=== PATIENT | male | born 1990 | race Caucasian/White ===

== ENCOUNTER 2022-11-05 12:20 | Emergency (ER) | payer MEDICAID ==
[~2022-11-05] VITALS: Ht 172.7 cm; Wt 77.1 kg
[2022-11-05] MEDS ORDERED: SUBLOCADE100 MG/0.5 SUB-Q (12:51)
[2022-11-05] MEDS ORDERED: LAMICTAL25 MG PO (12:52)
[2022-11-05] MEDS ORDERED: LITHIUM CARBON600 MG PO (12:52)
[2022-11-05] MEDS ORDERED: VENTOLIN HFA18 GM INH (12:53)
--- NOTE | 2022-11-05 16:17 | EKG ---
[facility] [address] [facility] [place] [address] Signed Normal sinus rhythm Normal ECG No previous ECGs available Confirmed by RAZ SAM MD ([id number]) on 11/05/2022 4:16:56 PM Electronically Signed By: RAZ SAM MD 11/05/22 1617 PATIENT NAME: ALDA AMANDA Electrocardiogram DATE OF : 88 PHYSICIAN: RAZ SAM MD REPORT #: [id number] REPORT IS CONFIDENTIAL AND NOT TO BE RELEASED WITHOUT AUTHORIZATION
== END 2022-11-05 16:27 | disposition home or self-care (01) ==
LOC: ED 12:20
DX: R10.11 Right upper quadrant pain (principal); Z79.899 Other long term (current) drug therapy
CPT/HCPCS: 36415; 80053; 83690; 85025; 85060; 85610; 93005; 93010; 99284-25